=== PATIENT | male | born 1955 | race Caucasian/White ===

== ENCOUNTER 2024-12-14 07:11 | Day surgery (SDC) | payer OTHER, SELFPAY ==
[2024-12-14] VITALS (16 sets, daily range): BP systolic 110–169; BP diastolic 72–94; BMI 27.5
[2024-12-14 08:29] LABS: Glucose - Point of Care 94 mg/dl (70-99)
[2024-12-14 08:54] LABS: Glucose - Point of Care 94 mg/dl (70-99)
--- NOTE | 2024-12-14 15:04 | CARDSERVLU ---
Echocardiogram with Lumason completed after protocol screening completed. Allergies verified.
Patent IV site: _Left wrist site clear ____
IV site flushed with 0.9% NaCl pre and post administration.
Diluted bolus method utilized to enhance visualization of ventricular pop.
Total volume given: __2__ mL
Patient tolerated all procedures well without complications.
--- NOTE | 2024-12-14 21:22 | ITS.CL.PN ---
[facility] - Procedure Note
Procedure
Procedure Note:
CARDIAC CATHETERIZATION REPORT
Date of Procedure: 12/14/2024
Referring: Dr. Raphael Burk MD
Indication: Anginal chest pain and severe aortic valve stenosis
PROCEDURE(S)
1. right heart catheterization
2. left heart catheterization
3. coronary angiography
ACCESS
1. 6F right radial artery (closure: radial band)
2. 5F right antecubital vein (closure: manual hemostasis)
CATHETERS
1. 5F [place]
2. 6F JR4
3. 6F JL4
4. 6F [place]
MODERATE SEDATION: 35 minutes of moderate sedation was utilized. An independent medical librarian was present to assist with and help manage the patient's level of consciousness and physiologic status.
HEMODYNAMIC DATA
LV 167/8 (EDP 25) mmHg
AO 141/79 (mean 104) mmHg
RA 22 mmHg
RV 74/15 (EDP 24) mmHg
PA 76/32 (mean 49) mmHg
PCWP 34 mmHg
SaO2 95.3%
SvO2 61.5%
Hb 11.2 g/dL
CO/CI 5.56/2.43 L/min/m2
SVR 1180 dsc*-5
PVR 3.5 [place] units
Valve Study: Mean gradient of 29.82 mmHg at heart rate of 60 giving stroke-volume index of 40.5 mL/m� and aortic valve area of 1.18 cm� (0.51 cm�/m�)
CORONARY ANGIOGRAPHY
Dominance: Right
LM: Large, normal
LAD: Large vessel giving rise to a small D1, small D2, and wrapping around the apex. There are trivial luminal irregularities only.
LCx: Large vessel giving rise to a small OM1 and moderate caliber branching OM2. There are trivial luminal irregularities only.
RCA: Large vessel giving rise to a moderate caliber RPDA and 2 small RPL branches. There are trivial luminal irregularities only.
Contrast used: 25 mL
RADIATION: dose 392 mGy; DAP 42 Gy*cm2; fluoroscopy time 7.0 min
CONCLUSIONS
1. Nonobstructive coronary artery disease and right dominant system
2. 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
3. Moderate aortic valve stenosis.
RECOMMENDATIONS
1. Primary prevention of coronary artery disease
2. Treatment of severe HFpEF and pulmonary hypertension with diuretics and medical therapy for heart failure
3. Close monitoring of aortic valve disease with consideration of TAVR in the future if disease progresses to severe
Copy to: Dr. Raphael Burk MD (semiconductor packages leak tester); Dr. Roberto Shetty MD (PCP)
Signed: Vinay White MD, PhD
== END 2024-12-14 15:17 | disposition home or self-care (01) ==
LOC: CATH 07:11
PROVIDERS: ATTENDING PHYSICIAN Student in an Organized Health Care Education/Training Program; FAMILY PHYSICIAN Internal Medicine; OTHER PHYSICIAN Internal Medicine Cardiovascular Disease
DX: I25.10 Atherosclerotic heart disease of native coronary artery without angina pectoris (principal); I35.0 Nonrheumatic aortic (valve) stenosis; I13.0 Hypertensive heart and chronic kidney disease with heart failure and stage 1 through stage 4 chronic kidney disease, or unspecified chronic kidney disease; I50.32 Chronic diastolic (congestive) heart failure; N18.9 Chronic kidney disease, unspecified; E11.22 Type 2 diabetes mellitus with diabetic chronic kidney disease; Z79.4 Long term (current) use of insulin; Z79.01 Long term (current) use of anticoagulants; I49.5 Sick sinus syndrome; I48.20 Chronic atrial fibrillation, unspecified; I27.20 Pulmonary hypertension, unspecified
CPT/HCPCS: 82962; 93306; 93460; 99152; 99153; C1894; Q9950; Q9967